=== PATIENT | female | born 1935 | race Caucasian/White ===

== ENCOUNTER 2021-08-31 15:10 | Emergency (ER) | payer OTHER ==
[~2021-08-31] VITALS: Ht 152.4 cm; Wt 81.6 kg
[~2021-08-31 15:10] MED LIST: ADVIL100 MG PO; ASPIRIN81 M1 PO; CALCIUM 500 W/V1 TAB PO; CALCIUM600 M2 PO; EYE; HYDROCODONE BIT1 T11 PO; KLONOPIN0.5 MG PO; LEVSIN0.125 M1 PO; LISINOPRIL AND1 TA1 PO; LISINOPRIL5 MG PO; METOPROLOL SR25 MG PO; METOPROLOL SUCC50 M1 PO; NAPROXEN250 MG PO; TYLENOL PM EXTR1 TA1 PO; ZOFRAN4 MG PO; [UNRECOGNIZED DRUG - OTHER]
== END 2021-08-31 17:31 | disposition left against medical advice (07) ==
LOC: ED 15:10
DX: R51.9 Headache, unspecified (principal); R68.83 Chills (without fever); R53.83 Other fatigue; Z53.21 Procedure and treatment not carried out due to patient leaving prior to being seen by health care provider

== ENCOUNTER 2021-09-09 16:32 | Inpatient (IN) | payer OTHER ==
[~2021-09-09] VITALS: Ht 172.7 cm; Wt 87.0 kg
[2021-09-09 17:24] LABS: BASO % 0.1 % (0.0-1.0); HEMATOCRIT 38.8 % (37.0-47.0); LYMPH # 1.1 10*3/uL (1.3-4.4); LYMPH % 8.3 % (27.0-41.0); MEAN CELL VOLUME 94.4 fl (81.0-99.0); MEAN CORPUSCULAR HGB 30.9 pg (27.0-31.0); MEAN CORPUSCULAR HGB CONC 32.7 g/dl (33.0-37.0); MEAN PLATELET VOLUME 10.1 fl (9.6-12.3); MONO % 7.1 % (3.0-9.0); NEUT # 11.1 10*3/uL (2.3-7.9); NEUT % 82.6 % (47.0-73.0); PLATELET COUNT AUTOMATED 136 10*3/uL (130-400); RED BLOOD COUNT 4.11 10*6/uL (4.10-5.10); RED CELL DISTRI WIDTH 13.2 % (0-14.5); WHITE BLOOD COUNT 13.5 10*3/uL (4.8-10.8)
[2021-09-09 17:26] LABS: ABG BASE EXCESS -0.7 mmol/L (-2.0-2.0); ARTERIAL BLOOD GAS PH 7.479 (7.35-7.45); ARTERIAL BLOOD GAS PO2 45.1 (80-90)
[2021-09-09 17:53] LABS: ALBUMIN 2.7 gm/dl (3.1-4.5); CREATININE 1.9 mg/dL (0.55-1.02); POTASSIUM 4.5 mmol/L (3.5-5.1)
[2021-09-09 20:42] VITALS: BP 151/60
[2021-09-09 21:42] LABS: ABG BASE EXCESS -3.2 mmol/L (-2.0-2.0); ARTERIAL BLOOD GAS PH 7.414 (7.35-7.45); ARTERIAL BLOOD GAS PO2 53.6 (80-90)
[2021-09-10] VITALS (7 sets, daily range): BP systolic 99–174; BP diastolic 45–72
[2021-09-10 02:56] LABS: BASO % 0.1 % (0.0-1.0); HEMATOCRIT 37.1 % (37.0-47.0); LYMPH # 0.7 10*3/uL (1.3-4.4); LYMPH % 6.8 % (27.0-41.0); MEAN CELL VOLUME 94.6 fl (81.0-99.0); MEAN CORPUSCULAR HGB 30.4 pg (27.0-31.0); MEAN CORPUSCULAR HGB CONC 32.1 g/dl (33.0-37.0); MEAN PLATELET VOLUME 10.5 fl (9.6-12.3); MONO # 0.2 10*3/uL (0.1-1.0); MONO % 2.5 % (3.0-9.0); NEUT # 8.7 10*3/uL (2.3-7.9); NEUT % 88.7 % (47.0-73.0); PLATELET COUNT AUTOMATED 125 10*3/uL (130-400); RED BLOOD COUNT 3.92 10*6/uL (4.10-5.10); RED CELL DISTRI WIDTH 13.2 % (0-14.5); WHITE BLOOD COUNT 9.8 10*3/uL (4.8-10.8)
[2021-09-10 03:15] LABS: ALBUMIN 2.3 gm/dl (3.1-4.5); POTASSIUM 4.7 mmol/L (3.5-5.1); TOTAL PROTEIN 6.3 gm/dL (6.4-8.2)
[2021-09-10 03:17] LABS: FREE T4 1.38 ng/dl (0.76-1.46)
[2021-09-10 03:21] LABS: THYROID STIM HORMONE (HS) 0.042 uIU/ml (0.358-4.75)
[2021-09-10 03:46] LABS: BILIRUBIN Negative (Negative); BLOOD 1+ (Negative); CLARITY Cloudy (Clear); COLOR Yellow (Yellow); GLUCOSE Negative (Negative); KETONE Negative (Negative); LEUKO ESTERASE Trace (Negative); NITRITE Negative (Negative); UROBILINOGEN 0.2 E.U./dl (0.0-1.0)
[2021-09-10 04:26] LABS: BACTERIA 3+; RBC 31-40 rbc/hpf (0-2)
[2021-09-10 05:43] LABS: ARTERIAL BLOOD GAS PH 7.347 (7.35-7.45); ARTERIAL BLOOD GAS PO2 73.2 (80-90)
[2021-09-10 05:44] LABS: ABG BASE EXCESS -6.4 mmol/L (-2.0-2.0)
[2021-09-10 10:15] LABS: FERRITIN 769.2 ng/mL (10.0-291.0)
[2021-09-11] VITALS: BP 155/69
[2021-09-11 04:00] VITALS: BP 161/76
[2021-09-11 05:45] LABS: ALBUMIN 2.1 gm/dl (3.1-4.5); CREATININE 1.57 mg/dL (0.55-1.02); POTASSIUM 4.5 mmol/L (3.5-5.1); TOTAL PROTEIN 6.2 gm/dL (6.4-8.2)
[2021-09-11 06:30] LABS: HEMATOCRIT 34.6 % (37.0-47.0); MEAN CELL VOLUME 94.5 fl (81.0-99.0); MEAN CORPUSCULAR HGB 30.9 pg (27.0-31.0); MEAN CORPUSCULAR HGB CONC 32.7 g/dl (33.0-37.0); MEAN PLATELET VOLUME 10.8 fl (9.6-12.3); RED BLOOD COUNT 3.66 10*6/uL (4.10-5.10); RED CELL DISTRI WIDTH 13.2 % (0-14.5); WHITE BLOOD COUNT 11.9 10*3/uL (4.8-10.8)
[2021-09-11 06:35] LABS: PLATELET COUNT AUTOMATED 166 10*3/uL (130-400)
[2021-09-11 06:50] LABS: PLATELET SUFFICIENCY NORMAL (NORMAL); TOTAL CELLS COUNTED 100 #CELLS; TOXIC GRANULATION SLIGHT
[2021-09-11 08:00] VITALS: BP 172/73
[2021-09-11] MEDS ORDERED: MELATONIN5 M1 PO (09:56)
[2021-09-11 11:06] VITALS: BP 188/77
[2021-09-11 16:00] VITALS: BP 164/70
[2021-09-11 20:00] VITALS: BP 167/67
[2021-09-12] VITALS (9 sets, daily range): BP systolic 130–185; BP diastolic 57–100
[2021-09-12 06:05] LABS: HEMATOCRIT 39.5 % (37.0-47.0); MEAN CELL VOLUME 95.2 fl (81.0-99.0); MEAN CORPUSCULAR HGB 30.4 pg (27.0-31.0); MEAN CORPUSCULAR HGB CONC 31.9 g/dl (33.0-37.0); MEAN PLATELET VOLUME 10.6 fl (9.6-12.3); PLATELET COUNT AUTOMATED 197 10*3/uL (130-400); RED BLOOD COUNT 4.15 10*6/uL (4.10-5.10); RED CELL DISTRI WIDTH 13.5 % (0-14.5); WHITE BLOOD COUNT 13.9 10*3/uL (4.8-10.8)
[2021-09-12 06:17] LABS: ALBUMIN 2.2 gm/dl (3.1-4.5); CREATININE 1.53 mg/dL (0.55-1.02); POTASSIUM 4.4 mmol/L (3.5-5.1); TOTAL PROTEIN 6.8 gm/dL (6.4-8.2)
[2021-09-12 07:22] LABS: ATYPICAL LYMPHS 1 % (0-0); BURR CELLS FEW; PLATELET SUFFICIENCY NORMAL (NORMAL); TOTAL CELLS COUNTED 100 #CELLS; TOXIC GRANULATION SLIGHT
[2021-09-13] VITALS: BP 150/80
[2021-09-13 02:00] VITALS: BP 96/43
[2021-09-13 06:23] LABS: POTASSIUM 4.8 mmol/L (3.5-5.1)
[2021-09-13 06:29] LABS: HEMATOCRIT 41.1 % (37.0-47.0); MEAN CELL VOLUME 93.6 fl (81.0-99.0); MEAN CORPUSCULAR HGB 29.8 pg (27.0-31.0); MEAN CORPUSCULAR HGB CONC 31.9 g/dl (33.0-37.0); PLATELET COUNT AUTOMATED 178 10*3/uL (130-400); RED BLOOD COUNT 4.39 10*6/uL (4.10-5.10); RED CELL DISTRI WIDTH 13.3 % (0-14.5)
[2021-09-13 07:04] LABS: CREATININE 1.47 mg/dL (0.55-1.02)
[2021-09-13 07:41] LABS: BURR CELLS FEW; POLYCHROMASIA SLIGHT; TOTAL CELLS COUNTED 100 #CELLS
[2021-09-13 07:42] LABS: PLATELET SUFFICIENCY NORMAL (NORMAL)
[2021-09-13 12:00] VITALS: BP 137/73
[2021-09-13 16:00] VITALS: BP 94/52
[2021-09-13 20:00] VITALS: BP 149/91
[2021-09-14 07:13] LABS: CREATININE 1.82 mg/dL (0.55-1.02); HEMATOCRIT 45.1 % (37.0-47.0); MEAN CELL VOLUME 94.2 fl (81.0-99.0); MEAN CORPUSCULAR HGB 30.1 pg (27.0-31.0); MEAN CORPUSCULAR HGB CONC 31.9 g/dl (33.0-37.0); POTASSIUM 4.7 mmol/L (3.5-5.1); RED BLOOD COUNT 4.79 10*6/uL (4.10-5.10); RED CELL DISTRI WIDTH 13.7 % (0-14.5); WHITE BLOOD COUNT 22.2 10*3/uL (4.8-10.8)
[2021-09-14 07:14] LABS: PLATELET COUNT AUTOMATED 245 10*3/uL (130-400)
[2021-09-14 08:00] VITALS: BP 124/82
[2021-09-14 08:17] LABS: PLATELET SUFFICIENCY NORMAL (NORMAL); TOTAL CELLS COUNTED 100 #CELLS
[2021-09-14 12:00] VITALS: BP 113/50
[2021-09-14 15:51] VITALS: BP 90/68
== END 2021-09-14 16:38 | disposition hospice, inpatient (51) | DRG 871 ==
LOC: ED 16:32 → EDHOLD 18:14 → ICCU 18:14 → EDHOLD 18:41 → ICCU 09-10 07:24 → 4E 09-13 11:15
PROVIDERS: Emergency Medicine; Hospitalist; Internal Medicine; ADMIT Internal Medicine; ATTEND Internal Medicine
PROC: XW033E5 Introduction of Remdesivir Anti-infective into Peripheral Vein, Percutaneous Approach, New Technology Group 5 (ICD-10-PCS; principal; 2021-09-09)
PROC: 5A0935A Assistance with Respiratory Ventilation, Less than 24 Consecutive Hours, High Flow/Velocity Cannula (ICD-10-PCS; 2021-09-09)
PROC: 5A0935A Assistance with Respiratory Ventilation, Less than 24 Consecutive Hours, High Flow/Velocity Cannula (ICD-10-PCS; 2021-09-10)
PROC: 5A09357 Assistance with Respiratory Ventilation, Less than 24 Consecutive Hours, Continuous Positive Airway Pressure (ICD-10-PCS; 2021-09-10)
PROC: 5A0935A Assistance with Respiratory Ventilation, Less than 24 Consecutive Hours, High Flow/Velocity Cannula (ICD-10-PCS; 2021-09-11)
PROC: 5A09357 Assistance with Respiratory Ventilation, Less than 24 Consecutive Hours, Continuous Positive Airway Pressure (ICD-10-PCS; 2021-09-11)
PROC: 5A0935A Assistance with Respiratory Ventilation, Less than 24 Consecutive Hours, High Flow/Velocity Cannula (ICD-10-PCS; 2021-09-12)
PROC: 5A09357 Assistance with Respiratory Ventilation, Less than 24 Consecutive Hours, Continuous Positive Airway Pressure (ICD-10-PCS; 2021-09-12)
PROC: 5A09357 Assistance with Respiratory Ventilation, Less than 24 Consecutive Hours, Continuous Positive Airway Pressure (ICD-10-PCS; 2021-09-13)
DX: A41.9 Sepsis, unspecified organism (principal); U07.1 COVID-19; J12.82 Pneumonia due to coronavirus disease 2019; E43 Unspecified severe protein-calorie malnutrition; N17.0 Acute kidney failure with tubular necrosis; I21.4 Non-ST elevation (NSTEMI) myocardial infarction; J96.01 Acute respiratory failure with hypoxia; E87.0 Hyperosmolality and hypernatremia; N18.4 Chronic kidney disease, stage 4 (severe); Z51.5 Encounter for palliative care; Z66 Do not resuscitate; R73.9 Hyperglycemia, unspecified; R74.01 Elevation of levels of liver transaminase levels; F41.9 Anxiety disorder, unspecified; I12.9 Hypertensive chronic kidney disease with stage 1 through stage 4 chronic kidney disease, or unspecified chronic kidney disease; R65.20 Severe sepsis without septic shock; Z88.8 Allergy status to other drugs, medicaments and biological substances; Z79.899 Other long term (current) drug therapy; Z79.1 Long term (current) use of non-steroidal anti-inflammatories (NSAID); Z68.29 Body mass index [BMI] 29.0-29.9, adult

== ENCOUNTER 2021-09-14 16:51 | Inpatient (IN) | payer OTHER ==
[~2021-09-14 16:51] MED LIST changes: +MELATONIN5 M1 PO
[2021-09-15] VITALS: BP 51/22
== END 2021-09-15 07:35 | DRG 871 ==
LOC: 4E 16:51
PROVIDERS: ADMIT Internal Medicine; ATTEND Internal Medicine
PROC: 5A09357 Assistance with Respiratory Ventilation, Less than 24 Consecutive Hours, Continuous Positive Airway Pressure (ICD-10-PCS; 2021-09-14)
PROC: 5A09357 Assistance with Respiratory Ventilation, Less than 24 Consecutive Hours, Continuous Positive Airway Pressure (ICD-10-PCS; principal; 2021-09-15)
DX: A41.9 Sepsis, unspecified organism (principal); U07.1 COVID-19; J12.82 Pneumonia due to coronavirus disease 2019; I21.4 Non-ST elevation (NSTEMI) myocardial infarction; Z51.5 Encounter for palliative care; J96.01 Acute respiratory failure with hypoxia; N18.4 Chronic kidney disease, stage 4 (severe); I50.30 Unspecified diastolic (congestive) heart failure; I13.0 Hypertensive heart and chronic kidney disease with heart failure and stage 1 through stage 4 chronic kidney disease, or unspecified chronic kidney disease; R65.20 Severe sepsis without septic shock; F41.9 Anxiety disorder, unspecified; Z79.899 Other long term (current) drug therapy